=== PATIENT | female | born 1950 | race Caucasian/White ===

== ENCOUNTER → 2016-09-30 | Outpatient (CLI) | payer BC ==
[~2016-09-30] MED LIST: ALBU18002 INH; ALBU1AER9 INH; AMT50 PO; ASPI325T39 PO; ATOR10TA88 PO; B-CO1CAP5 PO; BUPR-79 PO; CHOL1000 PO; COCO1OIL2 PO; EFF75 PO; FLUO20CA35 PO; HYDR-3983 PO; Inhaler INH; LEVO125T72 PO; NYSTCRE32 TOP; PRED1SUS3 OPB; PRED20TA2 PO; PRLSR20 PO; SENNTAB23 PO; SILV1CRE73 TOP
[2016-09-30 12:25] LABS: ESTIMATED AVERAGE GLUCOSE 114 mg/dl; HA1C FLAG Normal (Normal)
[2016-09-30 12:32] LABS: ALT/SGPT 28 U/L (12-78); AST/SGOT 22 U/L (15-37); BLOOD UREA NITROGEN 14 mg/dl (7-18); BUN/CREATININE RATIO 12.4 (10-20); CALCIUM 8.9 mg/dl (8.5-10.1); CARBON DIOXIDE 29 mmol/L (21-32); CHLORIDE 108 mmol/L (98-107); GLUCOSE 88 mg/dl (70-99); POTASSIUM 4.2 mmol/L (3.5-5.1); SODIUM 140 mmol/L (136-145); URIC ACID 4.9 mg/dl (2.6-7.2)
[2016-09-30 12:40] LABS: ALB/GLOB RATIO 0.9 (0.9-2); ALKALINE PHOSPHATASE 129 U/L (45-117); CHOLESTEROL 126 mg/dl (0-200); HDL CHOLESTEROL 62 mg/dl; LDL CHOLESTEROL CALCULATED 49 mg/dl; PHOSPHORUS 2.6 mg/dl (2.5-4.9); THYROID STIMULATING HORMONE 0.083 uIu/ml (0.300-4.500); TRIGLYCERIDES 74 mg/dl (0-150); VERY LOW DENSITY LIPOPROT CALC 15 mg/dl
[2016-10-01 10:50] LABS: C-REACTIVE PROT HIGHSEN 7.8 MG/L
--- NOTE | 2016-10-07 08:23 | CODING QUERY MEDICAL NECESSITY ---
SUPPORTING DIAGNOSIS NEEDED A supporting diagnosis is required for the test/procedure performed on this patient in order for us to be reimbursed by the patient's insurance. Please provide a supporting diagnosis for the following test/procedure listed below next to the test name along with your signature. *If there is no additional diagnosis for this patient that would support the following test/procedure please document that below next to the test/procedure. Test(s)/Procedure(s) that require a supporting diagnosis: * C-REACT PROT LUIS CARLOS DIAGNOSIS: Provider Signature: Date: Thank you Lesa Frost [employer] Once completed, please kindly fax back to [phone] For questions please call [phone]
== END | disposition home or self-care (01) ==
LOC: C.LAB 10:39
PROVIDERS: ATTEND Family Medicine
DX: R73.09 Other abnormal glucose (principal); E55.9 Vitamin D deficiency, unspecified; D51.9 Vitamin B12 deficiency anemia, unspecified; M05.79 Rheumatoid arthritis with rheumatoid factor of multiple sites without organ or systems involvement; Z79.899 Other long term (current) drug therapy; I65.29 Occlusion and stenosis of unspecified carotid artery

== ENCOUNTER 2016-10-17 13:03 | Emergency (ER) | payer BC ==
[~2016-10-17] VITALS: Ht 165.1 cm; Wt 72.0 kg
[~2016-10-17 13:03] MED LIST changes: -ALBU18002 INH; -NYSTCRE32 TOP; -PRED20TA2 PO
[2016-10-17 13:05] VITALS: TEMP 36.6
[2016-10-17] MEDS ORDERED: METHYLPREDNISOLONE 125 MG VIAL IV STA (13:18)
[2016-10-17] MEDS ORDERED: KETOROLAC TROMETHAMINE 30 MG/ML VIAL IV STA (13:18)
[2016-10-17] MEDS ORDERED: ONDANSETRON INJ 2 MG/ML 2 ML VIAL IV STA (13:18)
[2016-10-17] MEDS ORDERED: SODIUM CHLORIDE 0.9% 1000ML 1,000 ML IV STA (13:18)
[2016-10-17] MEDS ORDERED: NYSTATIN OINT 15 GM TUBE EXT STA (13:18)
[2016-10-17] MEDS ORDERED: ALBUT/IPRATROP 3MG/0.5MG NEB 3 ML VIAL INH ONE (13:30)
[2016-10-17 13:34] VITALS: PULSE 79; O2SAT 95
--- NOTE | 2016-10-17 13:43 | DIAGNOSTIC IMAGING REPORT ---
CHEST ONE VIEW PORTABLE HISTORY: Short of breath. COMPARISON: Chest 07/16/2015. FINDINGS: Small linear densities at the left lung base favor scarring or atelectasis. This is improved. No new focal lung consolidations to suggest pneumonia. No evidence for pulmonary edema. The heart is normal in size. No pleural effusions. No pneumothorax. IMPRESSION: No acute process. Electronically signed by: Karson Ibarra M.D. 10/17/2016 1:42 PM Dictated Date/Time: 10/17/2016 1:40 PM
[2016-10-17 13:54] LABS: BASO % 0.3 %; BASO ABS # 0.03 K/uL (0-0.2); COMPLETE YES; EOS % 0.3 %; HEMATOCRIT 40.1 % (37-47); IG% 0.2 %; LYMPH % 18.2 %; LYMPH ABS # 1.64 K/uL (1.2-3.4); MEAN CELL VOLUME 78.2 fL (80-100); MEAN CORPUSCULAR HEMOGLOBIN 27.3 pg (25-34); MEAN CORPUSCULAR HGB CONC 34.9 g/dl (32-36); MEAN PLATELET VOLUME 9.5 fL (7.4-10.4); MONO % 8.3 %; NEUT % 72.7 %; PLATELET COUNT 163 K/uL (130-400); RED BLOOD COUNT 5.13 M/uL (4.2-5.4); WHITE BLOOD COUNT 9.03 K/uL (4.8-10.8)
[2016-10-17 13:55] VITALS: O2SAT 98; Ht 165.1 cm; Wt 72.0 kg
[2016-10-17 14:12] LABS: BLOOD UREA NITROGEN 16 mg/dl (7-18); BUN/CREATININE RATIO 12.9 (10-20); CALCIUM 9.6 mg/dl (8.5-10.1); CARBON DIOXIDE 27 mmol/L (21-32); CHLORIDE 98 mmol/L (98-107); GLUCOSE 116 mg/dl (70-99); SODIUM 134 mmol/L (136-145)
[2016-10-17] MEDS ORDERED: POTASSIUM CHLORIDE 10 MEQ TABCR PO STA (14:13)
[2016-10-17 14:19] LABS: ALB/GLOB RATIO 0.7 (0.9-2); ALKALINE PHOSPHATASE 458 U/L (45-117); ALT/SGPT 158 U/L (12-78); AST/SGOT 162 U/L (15-37); CKMB/CK RATIO 1.2 (0-3.0)
[2016-10-17] MEDS ORDERED: PRED20TA2 PO (14:32)
[2016-10-17] MEDS ORDERED: NYSTCRE32 TOP (14:32)
--- NOTE | 2016-10-17 14:38 | EMERGENCY ROOM VISIT NOTE ---
History Report prepared by Jennifer: Concetta Palma Under the Supervision of: Dr. Dorian Peck M.D. First contact with patient: 13:10 Chief Complaint: HEADACHE Stated Complaint: LIGHTHEADED, MIGRAINE, VOMITING, SWEATS History of Present Illness The patient is a 66 year old female who presents to the Emergency Room with complaints of persistent headache starting 5 days ago. She has a history of migraines, but has not had one in this past year. She reports generalized weakness, chills, decreased appetite, weight loss, SOB, and vomiting. She also complains of a black and blue rash on her left upper thigh for the past 1-2 weeks for which she was started on antibiotics to no significant relief. The rash seems to be spreading and [place] and itches at times. She denies any abdominal pain. She has a history of COPD and often feels SOB. She has inhalers at home. Source of History: patient Onset: 5 days ago Position: head Quality: ache Timing: other (persistent) Associated Symptoms: + chills, + SOB, + vomiting, + weakness, + rash, No abdominal pain Note: Pt reports decreased appetite, weight loss. Review of Systems See HPI for pertinent positives & negatives. A total of 10 systems reviewed and were otherwise negative. Past Medical & Surgical Medical Problems: (1) COPD (chronic obstructive pulmonary disease) Family History No pertinent family history stated. Social History Smoking Status: Former Smoker Marital Status: Occupation Status: employed Current/Historical Medications Scheduled Amitriptyline Hcl (Elavil), 1-2 TAB PO HS Aspirin (Aspirin Ec), 325 MG PO HS Atorvastatin (Lipitor), 10 MG PO HS B-Complex W/Biotin & Folic Aci (Super B-Complex), 1 CAP PO HS Bupropion (Wellbutrin Sr), 150 MG PO BID Cholecalciferol (Vitamin D3), 1 TAB PO HS Coconut Oil (Bulk) (Coconut Oil), 1 CAP PO HS Fluoxetine (Prozac), 20 MG PO BID Levothyroxine Sodium (Synthroid), 125 MCG PO HS Nystatin-Triamcinolone (Nystatin/Triamcinolone), 1 APPLN TOP BID Omeprazole (Prilosec), 20 MG PO HS Prednisone (Prednisone Tab), 0 PO DAILY Sennosides-Docusate Sodium (Stool Softener), 1 TAB PO HS Venlafaxine Hcl (Effexor), 150 MG PO HS Scheduled PRN Albuterol Sulfate (Proair Respiclick), 2 PUFFS INH QID PRN for SOB/Wheezing Hydrocodone/Acetaminophen 7.5MG/325MG (Cochran 7.5MG/325MG), 1-2 TABS PO Q6 PRN for Pain Silver Sulfadiazine (Silvadene), 1 APPLN TOP UD PRN for [place] Allergies Coded Allergies: Adhesives (Verified Allergy, Unknown, BLISTERS, 10/17/16) Amoxicillin (Verified Allergy, Unknown, SHORTNESS OF BREATH, 10/17/16) PT TOLERATES PCN OKAY Clavulanic Acid (Verified Allergy, Unknown, SHORTNESS OF BREATH, 10/17/16) PATIENT TOLERATES PCN Erythromycin (Verified Allergy, Unknown, UNKNOWN, 10/17/16) Orphenadrine (Verified Allergy, Unknown, UNKNOWN, 10/17/16) Sodium Metabisulfite (Verified Allergy, Unknown, UNKNOWN, 10/17/16) Physical Exam Vital Signs Date Time Temp Pulse Resp B/P (MAP) Pulse Ox O2 Delivery O2 Flow Rate FiO2 10/17/16 15:05 81 15 113/66 100 10/17/16 14:23 76 21 96/61 98 Nebulizer 10/17/16 14:19 77 10/17/16 13:55 98 Room Air 10/17/16 13:55 98 Room Air 10/17/16 13:34 79 16 95 Room Air 10/17/16 13:05 36.6 69 20 113/67 96 Room Air Physical Exam GENERAL: Patient is a healthy-appearing well-nourished female HEAD: Normocephalic atraumatic EYES: Ocular movements intact pupils equal and react to light OROPHARYNX mucous membranes are moist no exudates present no erythema or edema present NECK: Supple no nuchal rigidity CHEST: Good equal expansion LUNGS: Clear and equal to auscultation CARDIAC: Normal S1 and S2 ABDOMEN: Soft nontender no guarding BACK: No CVA tenderness EXTREMITIES: No pain upon palpation normal muscle strength in all groups no clubbing cyanosis or edema, yeast like rash to the left inguinal region. NEURO: Patient is following commands and answering questions appropriately. Alert and oriented x3 Cranial Nerves 2-12 grossly intact Medical Decision & Procedures ER Provider Diagnostic Interpretation: X-ray results as stated below per interpretation by me and the radiologist: CHEST ONE VIEW PORTABLE HISTORY: Short of breath. COMPARISON: Chest 07/16/2015. FINDINGS: Small linear densities at the left lung base favor scarring or atelectasis. This is improved. No new focal lung consolidations to suggest pneumonia. No evidence for pulmonary edema. The heart is normal in size. No pleural effusions. No pneumothorax. IMPRESSION: No acute process. Electronically signed by: Karson Ibarra M.D. 10/17/2016 1:42 PM Dictated Date/Time: 10/17/2016 1:40 PM Laboratory Results 10/17/16 13:40 Red Blood Count 5.13, Mean Corpuscular Volume 78.2, Mean Corpuscular Hemoglobin 27.3, Mean Corpuscular Hemoglobin Concent 34.9, Mean Platelet Volume 9.5, Neutrophils (%) (Auto) 72.7, Lymphocytes (%) (Auto) 18.2, Monocytes (%) (Auto) 8.3, Eosinophils (%) (Auto) 0.3, Basophils (%) (Auto) 0.3, Neutrophils # (Auto) 6.56, Lymphocytes # (Auto) 1.64, Monocytes # (Auto) 0.75, Eosinophils # (Auto) 0.03, Basophils # (Auto) 0.03 10/17/16 13:40 Test 10/17/16 13:40 White Blood Count 9.03 K/uL (4.8-10.8) Red Blood Count 5.13 M/uL (4.2-5.4) Hemoglobin 14.0 g/dL (12.0-16.0) Hematocrit 40.1 % (37-47) Mean Corpuscular Volume 78.2 fL (80-100) Mean Corpuscular Hemoglobin 27.3 pg (25-34) Mean Corpuscular Hemoglobin Concent 34.9 g/dl (32-36) Platelet Count 163 K/uL (130-400) Mean Platelet Volume 9.5 fL (7.4-10.4) Neutrophils (%) (Auto) 72.7 % Lymphocytes (%) (Auto) 18.2 % Monocytes (%) (Auto) 8.3 % Eosinophils (%) (Auto) 0.3 % Basophils (%) (Auto) 0.3 % Neutrophils # (Auto) 6.56 K/uL (1.4-6.5) Lymphocytes # (Auto) 1.64 K/uL (1.2-3.4) Monocytes # (Auto) 0.75 K/uL (0.11-0.59) Eosinophils # (Auto) 0.03 K/uL (0-0.5) Basophils # (Auto) 0.03 K/uL (0-0.2) RDW Standard Deviation 38.8 fL (36.4-46.3) RDW Coefficient of Variation 13.8 % (11.5-14.5) Immature Granulocyte % (Auto) 0.2 % Immature Granulocyte # (Auto) 0.02 K/uL (0.00-0.02) Anion Gap 9.0 mmol/L (3-11) Est Creatinine Clear Calc Drug Dose 45.2 ml/min Estimated GFR () 54.2 Estimated GFR (Non- 46.7 BUN/Creatinine Ratio 12.9 (10-20) Calcium Level 9.6 mg/dl (8.5-10.1) Total Bilirubin 0.7 mg/dl (0.2-1) Aspartate Amino Transf (AST/SGOT) 162 U/L (15-37) Alanine Aminotransferase (ALT/SGPT) 158 U/L (12-78) Alkaline Phosphatase 458 U/L (45-117) Total Creatine Kinase 618 U/L (26-192) Creatine Kinase MB 7.7 ng/ml (0.5-3.6) Creatine Kinase MB Ratio 1.2 (0-3.0) Troponin I < 0.015 ng/ml (0-0.045) Total Protein 8.1 gm/dl (6.4-8.2) Albumin 3.3 gm/dl (3.4-5.0) Globulin 4.8 gm/dl (2.5-4.0) Albumin/Globulin Ratio 0.7 (0.9-2) Labs reviewed by ED physician. Medications Administered Medications (Trade) Dose Ordered Sig/Randall Route Start Time Stop Time Status Last Admin Dose Admin Nystatin (Mycostatin Oint) 1 appln NOW STAT EXT 10/17/16 13:18 10/17/16 13:23 DC 10/17/16 13:53 1 APPLN Albuterol/ Ipratropium (Duoneb) 12 ml ONE ONCE INH 10/17/16 13:30 10/17/16 13:31 DC 10/17/16 13:34 12 ML Methylprednisolone Sodium Succinate (Solu-Medrol IV) 125 mg NOW STAT IV 10/17/16 13:18 10/17/16 13:23 DC 10/17/16 13:53 125 MG Sodium Chloride 1,000 ml @ 999 mls/hr Q1H1M STAT IV 10/17/16 13:18 10/17/16 14:18 DC 10/17/16 13:54 999 MLS/HR Ketorolac Tromethamine (Toradol Inj) 30 mg NOW STAT IV 10/17/16 13:18 10/17/16 13:23 DC 10/17/16 13:54 30 MG Ondansetron HCl (Zofran Inj) 4 mg NOW STAT IV 10/17/16 13:18 10/17/16 13:23 DC 10/17/16 13:54 4 MG Potassium Chloride (Klor-Con M10) 80 meq NOW STAT PO 10/17/16 14:13 10/17/16 14:15 DC 10/17/16 14:55 80 MEQ ECG Indication: weakness Rate (beats per minute): 74 Rhythm: normal sinus Findings: T-wave inversion (Anterior), no acute ischemic change, no ectopy ED Course 1313: Past medical records reviewed. The patient was evaluated in room A11B. A complete history and physical examination was performed. 1318: Zofran Inj 4 mg IV, Toradol Inj 30 mg IV, NSS 1000 ml @ 999 mls/hr IV, Solu-Medrol IV 125 mg IV, Nystatin 1 appln EXT. 1330: Duoneb 12 ml INH. 1413: Potassium Chloride 80 meq PO. 1435: Upon reexamination the patient is resting comfortably. I discussed results and treatment plan with the patient. She verbalizes agreement and understanding. The patient is ready for discharge. Medical Decision Differential diagnosis: Etiologies such as infections, reactive airway disease, pneumonia, pneumothorax , COPD, CHF, cardiac ischemia, pulmonary embolism, musculoskeletal, gastrointestinal, as well as others were entertained. This is a 66-year-old female who presents emergency department complaining of rash. Nystatin was applied to the rash area. The patient the patient was also given an hour-long breathing treatment started on steroids. I will continue the patient on a prednisone tapered home. I do believe that the patient as well as to be sent home. Patient was in agreement with the treatment plan. Medication Reconcilliation Current Medication List: was personally reviewed by me Blood Pressure Screening Patient's blood pressure: Normal blood pressure Blood pressure disposition: Did not require urgent referral Impression Primary Impression: Rash Additional Impression: COPD (chronic obstructive pulmonary disease) Scribe Attestation The scribe's documentation has been prepared under my direction and personally reviewed by me in its entirety. I confirm that the note above accurately reflects all work, treatment, procedures, and medical decision making performed by me. Departure Information Dispostion Home / Self-Care Prescriptions Nystatin-Triamcinolone (NYSTATIN/TRIAMCINOLONE) 1 Cre Cre 1 APPLN TOP BID, #60 GM 1 Refill Prov: Dorian Peck MD 10/17/16 Prednisone (Prednisone Tab) 20 Mg Tab 0 PO DAILY, #7 TAB 2 TABS DAILY FOR 2 DAYS, THEN 1 TAB DAILY FOR 2 DAYS, THEN 1/2 TAB DAILY FOR 2 DAYS. Prov: Dorian Peck MD 10/17/16 Referrals Kevin Vargas M.D. (PCP) Forms HOME CARE DOCUMENTATION FORM, IMPORTANT VISIT INFORMATION Patient Instructions My [facility] Additional Instructions Use inhaler twice every 6 hours Increase fluids next 48 hours You have been examined and treated today on an emergency basis only. This is not a substitute for, or an effort to provide, complete comprehensive medical care. It is impossible to recognize and treat all injuries or illnesses in a single emergency department visit. It is therefore important that you follow up closely with [facility]. Call as soon as possible for an appointment. Thank you for your time and consideration. I look forward to speaking with you again soon. Please don't hesitate to call us if you have any questions. Problem Qualifiers Additional Impression: COPD (chronic obstructive pulmonary disease) COPD type: unspecified COPD Qualified Codes: J44.9 - Chronic obstructive pulmonary disease, unspecified
[2016-10-17] MEDS ORDERED: ALBU18002 INH (14:53)
[2016-10-17 15:05] VITALS: BP 113/66; PULSE 81; O2SAT 100
== END 2016-10-17 15:05 | disposition home or self-care (01) ==
LOC: C.EDB 13:04 → C.EDA 15:05
DX: R21 Rash and other nonspecific skin eruption (principal); J44.9 Chronic obstructive pulmonary disease, unspecified; R11.10 Vomiting, unspecified; R51 Headache; R53.1 Weakness; Z79.82 Long term (current) use of aspirin; Z79.899 Other long term (current) drug therapy

== ENCOUNTER → 2016-11-13 | Outpatient (CLI) | payer BC ==
[~2016-11-13] MED LIST changes: +ALBU18002 INH; -ALBU1AER9 INH; -Inhaler INH; +NYSTCRE32 TOP; -PRED1SUS3 OPB; +PRED20TA2 PO
[2016-11-13 10:13] LABS: BASO % 0.4 %; BASO ABS # 0.03 K/uL (0-0.2); COMPLETE YES; EOS % 4.2 %; HEMATOCRIT 38.9 % (37-47); IG% 0.4 %; LYMPH % 20.7 %; LYMPH ABS # 1.38 K/uL (1.2-3.4); MEAN CELL VOLUME 84.4 fL (80-100); MEAN CORPUSCULAR HEMOGLOBIN 26.9 pg (25-34); MEAN CORPUSCULAR HGB CONC 31.9 g/dl (32-36); MEAN PLATELET VOLUME 9.1 fL (7.4-10.4); MONO % 8.5 %; NEUT % 65.8 %; PLATELET COUNT 258 K/uL (130-400); RED BLOOD COUNT 4.61 M/uL (4.2-5.4); WHITE BLOOD COUNT 6.67 K/uL (4.8-10.8)
[2016-11-13 10:57] LABS: ALT/SGPT 27 U/L (12-78); AST/SGOT 19 U/L (15-37); BLOOD UREA NITROGEN 10 mg/dl (7-18); CALCIUM 9.3 mg/dl (8.5-10.1); CARBON DIOXIDE 29 mmol/L (21-32); CHLORIDE 103 mmol/L (98-107); GLUCOSE 137 mg/dl (70-99); SODIUM 137 mmol/L (136-145)
[2016-11-13 11:05] LABS: ALB/GLOB RATIO 0.8 (0.9-2); ALKALINE PHOSPHATASE 160 U/L (45-117); THYROID STIMULATING HORMONE 0.584 uIu/ml (0.300-4.500); TOTAL IRON BINDING CAPACITY 353 mcg/dl (250-450); URIC ACID 4.9 mg/dl (2.6-7.2)
[2016-11-13 11:24] LABS: LYME DISEASE AB IGG POS (NEG); LYME DISEASE AB IGM POS (NEG)
[2016-11-18 09:50] LABS: 18KDIGG BAND REACTIVE (NONREACTIVE); 23KDIGG BAND REACTIVE (NONREACTIVE); 23KDIGM BAND REACTIVE (NONREACTIVE); 28KDIGG BAND NONREACTIVE (NONREACTIVE); 30KDIGG BAND NONREACTIVE (NONREACTIVE); 39KDIGG BAND REACTIVE (NONREACTIVE); 39KDIGM BAND NONREACTIVE (NONREACTIVE); 41KDIGG BAND REACTIVE (NONREACTIVE); 41KDIGM BAND NONREACTIVE (NONREACTIVE); 45KDIGG BAND REACTIVE (NONREACTIVE); 58KDIGG BAND REACTIVE (NONREACTIVE); 66KDIGG BAND NONREACTIVE (NONREACTIVE); 93KDIGG BAND NONREACTIVE (NONREACTIVE)
== END | disposition home or self-care (01) ==
LOC: C.LAB 09:20
PROVIDERS: ATTEND Family Medicine
DX: R73.09 Other abnormal glucose (principal); E55.9 Vitamin D deficiency, unspecified; D51.9 Vitamin B12 deficiency anemia, unspecified; E78.9 Disorder of lipoprotein metabolism, unspecified; R53.83 Other fatigue

== ENCOUNTER → 2017-03-24 | Outpatient (CLI) | payer BC ==
[~2017-03-24] MED LIST changes: +ATOR10TA82 PO; -ATOR10TA88 PO
--- NOTE | 2017-03-25 15:41 | MAMMOGRAPHY REPORT ---
BILATERAL DIGITAL SCREENING MAMMOGRAM TOMOSYNTHESIS WITH CAD: 03/24/2017 CLINICAL HISTORY: Routine screening. TECHNIQUE: Breast tomosynthesis in addition to standard 2D mammography was performed. Current study was also evaluated with a Computer Aided Detection (CAD) system. COMPARISON: Comparison is made to exams dated: 10/16/2010 mammogram and 09/09/2002 mammogram - [facility]. BREAST COMPOSITION: There are scattered areas of fibroglandular density in both breasts. FINDINGS: There are stable benign calcifications in both breasts. No suspicious mass, architectural distortion or cluster of microcalcifications is seen. IMPRESSION: ACR BI-RADS CATEGORY 2: BENIGN There is no mammographic evidence of malignancy. A 1 year screening mammogram is recommended. The pa tient will receive written notification of the results. Approximately 10% of breast cancers are not detected with mammography. A negative mammographic report should not delay biopsy if a clinically suggestive mass is present. Claudia Somers M.D. ay/:03/24/2017 16:42:50 Progressive Care Manager: Scar RESTREPO(Brianna)(Jodi), [facility] letter sent: Normal 1/2 BI-RADS Code: ACR BI-RADS Category 2: Benign
== END | disposition home or self-care (01) ==
LOC: C.MAMM 11:18
PROVIDERS: ATTEND Family Medicine
DX: Z12.31 Encounter for screening mammogram for malignant neoplasm of breast (principal)

== ENCOUNTER → 2017-10-20 | Outpatient (CLI) | payer BC ==
[~2017-10-20] MED LIST changes: -PRED20TA2 PO
[2017-10-20 09:31] LABS: BASO % 0.5 %; BASO ABS # 0.03 K/uL (0-0.2); EOS % 5.6 %; EOS ABS # 0.31 K/uL (0-0.5); HEMOGLOBIN 11.8 g/dL (12.0-16.0); IG# 0.02 K/uL (0.00-0.02); LYMPH % 48.5 %; LYMPH ABS # 2.67 K/uL (1.2-3.4); MEAN CELL VOLUME 84.9 fL (80-100); MEAN CORPUSCULAR HEMOGLOBIN 27.1 pg (25-34); MEAN CORPUSCULAR HGB CONC 31.9 g/dl (32-36); MONO % 10.5 %; MONO ABS # 0.58 K/uL (0.11-0.59); NEUT % 34.5 %; NEUT ABS # 1.89 K/uL (1.4-6.5); PLATELET COUNT 254 K/uL (130-400); RED CELL DISTRIBUTION WIDTH CV 13.5 % (11.5-14.5); RED CELL DISTRIBUTION WIDTH SD 41.9 fL (36.4-46.3)
[2017-10-20 09:45] LABS: HEMOGLOBIN A1C 5.6 % (4.5-5.6)
[2017-10-20 10:04] LABS: ALBUMIN 3.4 gm/dl (3.4-5.0); ALKALINE PHOSPHATASE 119 U/L (45-117); ALT/SGPT 24 U/L (12-78); AST/SGOT 21 U/L (15-37); BLOOD UREA NITROGEN 14 mg/dl (7-18); CALCIUM 8.4 mg/dl (8.5-10.1); CARBON DIOXIDE 27 mmol/L (21-32); CHOLESTEROL 120 mg/dl (0-200); GLUCOSE 100 mg/dl (70-99); LDL CHOLESTEROL CALCULATED 44 mg/dl; POTASSIUM 3.4 mmol/L (3.5-5.1); SODIUM 140 mmol/L (136-145); TOTAL PROTEIN 7.3 gm/dl (6.4-8.2); TRANSFERRIN 321 mg/dl (200-360); URIC ACID 4.6 mg/dl (2.6-7.2)
== END | disposition home or self-care (01) ==
LOC: C.LAB 08:09
PROVIDERS: ATTEND Family Medicine
DX: R73.09 Other abnormal glucose (principal); E55.9 Vitamin D deficiency, unspecified; D51.9 Vitamin B12 deficiency anemia, unspecified; E78.9 Disorder of lipoprotein metabolism, unspecified; R53.83 Other fatigue